=== PATIENT | male | born 1965 | race Caucasian/White ===

== ENCOUNTER 2022-07-12 08:52 | Outpatient (RCR) | payer OTHER, SELFPAY | END 2022-08-08 14:39 | disposition home or self-care (01) | LOC: HO.WCC 08:52 | PROVIDERS: PCP Family Medicine; Referring Provider Podiatrist; Visit Provider Physician Assistant | DX: E11.621 Type 2 diabetes mellitus with foot ulcer (principal); L97.522 Non-pressure chronic ulcer of other part of left foot with fat layer exposed; Z79.2 Long term (current) use of antibiotics; Z79.4 Long term (current) use of insulin; Z79.84 Long term (current) use of oral hypoglycemic drugs; Z79.82 Long term (current) use of aspirin; Z79.52 Long term (current) use of systemic steroids; Z79.899 Other long term (current) drug therapy; Z87.891 Personal history of nicotine dependence | CPT/HCPCS: 11042; 99212 ==